=== PATIENT | male | born 1965 | race African-American/Black ===

== ENCOUNTER 2017-03-28 13:06 | Emergency (ER) | payer BC ==
[2017-03-28 14:10] LABS: BASOPHILS 0.4 %; BASOPHILS ABSOLUTE 0.02 10/3/uL (0.0-0.16); EOSINOPHILS 0.2 %; EOSINOPHILS ABSOLUTE 0.01 10/3/uL (0.0-0.53); HEMATOCRIT 39.1 % (40.0-51.0); HEMOGLOBIN 12.8 g/dL (13.6-17.8); IMMATURE GRANULOCYTES 0.2 %; IMMATURE GRANULOCYTES ABSOLUTE 0.01 10/3/uL (0.0-0.11); LYMPHOCYTES 18.7 %; LYMPHOCYTES ABSOLUTE 0.94 10/3/uL (0.67-4.30); MEAN CORPUS HGB CONC 32.7 g/dL (32.0-36.0); MEAN CORPUSCULAR HEMOGLOB 30.8 pg (26.0-34.0); MEAN CORPUSCULAR VOLUME 94.2 fL (80-100); MEAN PLATELET VOLUME 8.6 fL (9.2-13.0); MONOCYTES 12.7 %; MONOCYTES ABSOLUTE 0.64 10/3/uL (0.21-1.20); NEUTROPHILS 67.8 %; PLATELET COUNT 332 10/3/uL (150-400); RBC DISTRIBUTION WIDTH 14.1 % (12.0-16.0); RED CELL COUNT 4.15 10/6/uL (4.7-6.1)
[2017-03-28 14:12] LABS: ER CBC TAT 0 Hrs 07 Mins; MANUAL DIFF NO %
[2017-03-28 14:17] LABS: PARTIAL THROMBO TIME 27.9 SEC (22.5-37.2); PROTIME (NOT ORD) 13.1 SEC (12.0-14.5)
[2017-03-28 14:27] LABS: BUN (BLOOD UREA NITROGEN) 9 MG/DL (6-23); CHEST PAIN PROFILE TAT 0 Hrs 24 Mins; CHLORIDE, SERUM 106 MMOL/L (96-112); CO2 (CARBON DIOXIDE) 26 MMOL/L (24-34); CREATININE 0.88 MG/DL (0.70-1.30); GFR AFRICAN AMERICAN 117 ML/MIN (>=60); GFR NON AFRICAN AMERICAN 101 ML/MIN (>=60); GLUCOSE, SERUM 101 MG/DL (60-99); POTASSIUM, SERUM 4.1 MMOL/L (3.5-5.3); SODIUM, SERUM 138 MMOL/L (135-148); TROPONIN I <0.02 NG/ML (<0.05)
== END 2017-03-28 16:41 | disposition home or self-care (01) ==
LOC: ER 13:06
PROVIDERS: Emergency Medicine
DX: R07.89 Other chest pain (principal)
CPT/HCPCS: 71020; 80048; 83735; 84484; 85025; 85610; 85730; 93005; 99285

== ENCOUNTER 2017-04-11 11:22 | Observation (INO) | payer BC ==
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
--- NOTE | ~2017-04-11 | HP ---
History And Physical [facility] [address] [place]. [address] NAME: JOAQUIN DICKSON : 69 STATUS : ADM Bao PAT#: [id number] AGE: 51 ADM/REG DATE : 04/11/17 MR#: [id number] REPORT SERV DATE: 04/11/17 DICTATED BY: ALEJANDRA FLORIAN DATE: 04/11/17 REPORT STATUS : Draft TRANSCRIBED BY: MODRenée DATE: 04/11/17 DATE OF ADMISSION: 04/11/2017 CHIEF COMPLAINT: Chest pain reproducible by palpation, left arm numbness, and dizziness on and off for one month. HISTORY OF PRESENT ILLNESS: He is a 51-year-old gentleman. He does not have any past medical history, no prior hospitalization, no primary care provider. He does not take any medications, presenting today to [facility] with complaints that started about one month ago according to patient who is in intractable chest pain reproducible by palpation as well as left arm numbness and dizziness. The patient about two weeks ago, went to [facility] with these symptoms. He had a full workup which essentially has been negative and discharged home from the emergency room. However, due to the persistent and recurrence of the symptoms, today came to [facility]. He said that his chest pains are sharp and nonradiating. They are lasting about two to three hours and they are accompanied by left arm numbness as well as dizziness. He said he feels sometimes near syncopal, but he has never passed out. He did have some intermittent abdominal pain, but no nausea or vomiting. No diarrhea or constipation. No palpitations. No increased urinary frequency or urgency. He says that he is a smoker, but since symptoms occur, he cut in smoking significantly, although he has been smoking for 27 years. He is drinking about at least three to four beers per day for his entire life. He does not take IV drugs. He used to take marijuana. The patient has been evaluated in the emergency room, and after initial evaluation, Hospitalist Service has been asked for admission, further evaluation, and treatment. PAST MEDICAL HISTORY: None. PAST SURGICAL HISTORY: Left ankle surgery. PAST SOCIAL HISTORY: He is a smoker, currently half pack a day for at least 27 years. Alcohol about three to four beers a day. No IV drugs. ALLERGIES: HE DOES NOT HAVE ANY DRUG ALLERGIES. FAMILY HISTORY: Significant for arthritis and hypertension. MEDICATIONS: Also he does not take any home medications. PHYSICAL EXAMINATION: VITAL SIGNS: On arrival, the patient has been afebrile. Blood pressure 158/89, also heart rate 88, respiratory rate 16, and saturating 99% in room air. GENERAL: He is a very pleasant, well-developed, well-nourished gentleman, in no acute distress. He is alert and oriented x3. He is nonfocal. He follows all his commands appropriately. HEENT: Shows pupils equal, round, reactive to light. Extraocular movements intact. NECK: No JVD. No lymphadenopathy. No thyromegaly appreciated. CHEST: Eval shows bilateral air entry. Clear anteroposterior. No wheezes, crackles, or History And Physical [address] [address] NAME: JOAQUIN DICKSON : 69 STATUS : ADM Bao PAT#: [id number] AGE: 51 ADM/REG DATE : 04/11/17 MR#: [id number] REPORT SERV DATE: 04/11/17 DICTATED BY: ALEJANDRA FLORIAN DATE: 04/11/17 REPORT STATUS : Draft TRANSCRIBED BY: CHINMAY DATE: 04/11/17 rhonchi appreciated. CARDIOVASCULAR: He has regular rate and rhythm. S1, S2 positive. No S3, no S4. No murmurs, rubs, or gallops appreciated. ABDOMEN: Soft with positive bowel sounds. Nontender. No guarding. No rebound. EXTREMITIES: No clubbing, cyanosis, or edema. NEUROLOGIC: He is alert and oriented x3. He is nonfocal. He follows all his commands appropriately. LABORATORY DATA: Labs from today include sodium 142, potassium 4, chloride 107, CO2 of 25, BUN 8, creatinine is 0.83, glucose is 75. Total protein 7.9, albumin 3.9, direct bilirubin 0.1, indirect bilirubin 0.4, total bilirubin 0.5, alkaline phosphatase 59, ALT 65, AST 73. Lipase 269. Troponin I less than 0.02. White count is 4, hemoglobin 12.2, hematocrit 37.5, platelets 215. INR is 1. There is a chest x-ray, portable, performed in the emergency room. It does not show any acute cardiopulmonary abnormalities that could be appreciated. EKG has shown normal sinus rhythm, normal EKG. There is a CT of the brain without contrast performed in the emergency room shows negative noncontrast CT, opacification of the mastoid cells and partial opacification of the middle ears bilateral. Spine CT without contrast shows some degenerative joint disease, but no fracture or subluxation. ASSESSMENT: 1. This is a very pleasant 51-year-old gentleman with chest pain appears typical by presentation. 2. Left arm numbness and dizziness. 3. Tobacco abuse. 4. ETOH abuse. PLAN: 1. The patient is going to be admitted to Hospitalist Service for observation. Place him on oxygen, place him on aspirin, beta blockers low doses as tolerated. Rule out for LA by serial cardiac enzymes, serial EKG. Check a stress test in the morning as well. 2. Left arm numbness and intermittent dizziness. We are going to order an MRI of the brain and the C-spine in the morning. We will place him on oxygen, check a carotid ultrasound. Do a 2D echo. Rule him out for LA by serial cardiac enzymes, serial EKG. Check on hemoglobin A1c and fasting lipid profile. Check on vitamin B12, folic acid, check orthostatics twice a day. Hydrate and follow up the a.m. labs. 3. ETOH abuse. We are going to put him on Ativan p.r.n., multivitamin, as well as thiamine, and ETOH cessation education has been provided to the patient as well. 4. Tobacco abuse. Tobacco cessation education has been provided to the patient as well. We will provide reasonable pain, nausea control, as well as GI and DVT prophylaxis. That has been discussed extensively with the patient. All the questions have been History And Physical [address] [address] NAME: JOAQUIN DICKSON : 69 STATUS : ADM Bao PAT#: [id number] AGE: 51 ADM/REG DATE : 04/11/17 MR#: [id number] REPORT SERV DATE: 04/11/17 DICTATED BY: ALEJANDRA FLORIAN DATE: 04/11/17 REPORT STATUS : Draft TRANSCRIBED BY: MODL DATE: 04/11/17 answered in full. Further workup and recommendation pending above. It is worthwhile to note that the patient is going to be followed by Hospitalist Service. CF/CHINMAY Alejandra Florian M.D. / [id number] CC: Alejandra Florian M.D.
[2017-04-11 12:28] LABS: BASOPHILS 0.3 %; BASOPHILS ABSOLUTE 0.01 10/3/uL (0.0-0.16); EOSINOPHILS 1.3 %; EOSINOPHILS ABSOLUTE 0.05 10/3/uL (0.0-0.53); ER CBC TAT 0 Hrs 08 Mins; HEMATOCRIT 37.5 % (40.0-51.0); HEMOGLOBIN 12.2 g/dL (13.6-17.8); IMMATURE GRANULOCYTES 0.3 %; IMMATURE GRANULOCYTES ABSOLUTE 0.01 10/3/uL (0.0-0.11); LYMPHOCYTES 19.2 %; LYMPHOCYTES ABSOLUTE 0.76 10/3/uL (0.67-4.30); MANUAL DIFF NO %; MEAN CORPUS HGB CONC 32.5 g/dL (32.0-36.0); MEAN CORPUSCULAR HEMOGLOB 30.5 pg (26.0-34.0); MEAN CORPUSCULAR VOLUME 93.8 fL (80-100); MEAN PLATELET VOLUME 8.2 fL (9.2-13.0); MONOCYTES 14.6 %; MONOCYTES ABSOLUTE 0.58 10/3/uL (0.21-1.20); NEUTROPHILS 64.3 %; NEUTROPHILS ABSOLUTE 2.55 10/3/uL (2.02-8.40); PLATELET COUNT 215 10/3/uL (150-400)
[2017-04-11 12:35] LABS: PARTIAL THROMBO TIME 27.8 SEC (22.5-37.2); PROTIME (NOT ORD) 12.9 SEC (12.0-14.5)
[2017-04-11 12:45] LABS: ALBUMIN 3.9 G/DL (3.5-5.0); ALKALINE PHOSPHATASE 59 U/L (45-117); BUN (BLOOD UREA NITROGEN) 8 MG/DL (6-23); CALCIUM, SERUM 8.7 MG/DL (8.5-10.4); CHEST PAIN PROFILE TAT 0 Hrs 25 Mins; CHLORIDE, SERUM 107 MMOL/L (96-112); CO2 (CARBON DIOXIDE) 25 MMOL/L (24-34); CREATININE 0.83 MG/DL (0.70-1.30); DIRECT BILIRUBIN 0.1 MG/DL (0.0-0.4); GFR AFRICAN AMERICAN 120 ML/MIN (>=60); GFR NON AFRICAN AMERICAN 103 ML/MIN (>=60); INDIRECT BILIRUBIN(NOT ORDER) 0.4 MG/DL (0.1-0.9); SGOT(AST) 73 U/L (5-40); SGPT(ALT) 65 U/L (5-65); SODIUM, SERUM 142 MMOL/L (135-148); TOTAL BILIRUBIN 0.5 MG/DL (0-1.2); TOTAL PROTEIN 7.7 G/DL (6.0-8.5); TROPONIN I <0.02 NG/ML (<0.05)
[2017-04-11 12:47] LABS: GLUCOSE, SERUM 75 MG/DL (60-99)
[2017-04-11] MEDS ORDERED: *DENIES (15:44)
[2017-04-11 20:39] LABS: ALCOHOL 27 MG/DL (0); FREE T4 0.81 NG/DL (0.76-1.46); PHOSPHORUS, SERUM 3.4 MG/DL (2.5-4.5); SALICYLATE 2.4 MG/DL (-)
[2017-04-11 20:41] LABS: ACETAMINOPHEN LEVEL (TYLENOL) < 2.0 MCG/ML (10.0-20.0); FOLATE 17.2 NG/ML (>5.2)
[2017-04-11 21:25] LABS: CPK 278 U/L (0-200); TROPONIN I <0.02 NG/ML (<0.05)
[2017-04-11 21:26] LABS: CK-MB 1.5 NG/ML
[2017-04-11 23:39] LABS: ASCORBIC ACID (UR NOT ORDER) NEG (NEG); BILIRUBIN, URINE NEGATIVE (NEG); KETONE, URINE 20 MG/DL (NEG); LEUKOCYTE ESTERASE(NOT OR NEG (NEG); WBC (NOT ORDERED) (RFLEX) 1 (0-5)
[2017-04-12 00:01] LABS: AMPHETAMINES (NOT ORD) NEG (NEG); BARBITURATES (NOT ORDERED NEG (NEG); BENZODIAZEPINES (NOT ORD) NEG (NEG); CANNABINOIDS (THC) NEG (NEG); COCAINE (NOT ORDERED) NEG (NEG); OPIATES POS (NEG); PHENCYCLIDINE(PCP) NEG (NEG); TRICYCLICS NEG (NEG)
[2017-04-12 04:38] LABS: PARTIAL THROMBO TIME 28.4 SEC (22.5-37.2); PROTIME (NOT ORD) 12.7 SEC (12.0-14.5)
[2017-04-12 04:49] LABS: BUN (BLOOD UREA NITROGEN) 10 MG/DL (6-23); CALCIUM, SERUM 8.6 MG/DL (8.5-10.4); CHLORIDE, SERUM 105 MMOL/L (96-112); CHOL/HDL RATIO(NOT ORDER) 1.8 (0-5); CHOLESTEROL 215 MG/DL (< 200); CO2 (CARBON DIOXIDE) 28 MMOL/L (24-34); CPK 220 U/L (0-200); CREATININE 0.94 MG/DL (0.70-1.30); GFR AFRICAN AMERICAN 110 ML/MIN (>=60); GFR NON AFRICAN AMERICAN 95 ML/MIN (>=60); GLUCOSE, SERUM 89 MG/DL (60-99); HDL CHOLESTEROL 119 MG/DL (> 39); LDL CHOLESTEROL 82 MG/DL (< 130); NON-HDL CHOLESTEROL 96 MG/DL (< 160); POTASSIUM, SERUM 3.6 MMOL/L (3.5-5.3); SODIUM, SERUM 137 MMOL/L (135-148); TRIGLYCERIDE 73 MG/DL (< 150); TROPONIN I <0.02 NG/ML (<0.05)
[2017-04-12 04:50] LABS: CK-MB 1.3 NG/ML
[2017-04-12 08:31] LABS: GLYCOHEMOGLOBIN (HbA1c) 5.5 % (4.7-6.1)
[2017-04-12] MEDS ORDERED: NORV5 PO (13:47)
[2017-04-12] MEDS ORDERED: MULTIPLE VIT PO (13:47)
== END 2017-04-12 14:36 | disposition home or self-care (01) ==
LOC: ER 11:22 → CDU1 16:57
PROVIDERS: Emergency Medicine; Internal Medicine
DX: R07.89 Other chest pain (principal); R20.0 Anesthesia of skin; R42 Dizziness and giddiness; I10 Essential (primary) hypertension; F17.210 Nicotine dependence, cigarettes, uncomplicated; Z98.890 Other specified postprocedural states; Z79.82 Long term (current) use of aspirin; Z79.899 Other long term (current) drug therapy; Z82.61 Family history of arthritis; Z82.49 Family history of ischemic heart disease and other diseases of the circulatory system
CPT/HCPCS: 70450; 71010; 72125; 78452; 80048; 80061; 80076; 80305; 80307; 81001; 82140; 82550; 82553; 82607; 82746; 83036; 83605; 83615; 83690; 83735; 83880; 84100; 84439; 84443; 84484; 85025; 85610; 85730; 93005; 93017; 93306; 93880; 96374; 96376; 99285; A9270-GY; A9502; G0378

== ENCOUNTER 2017-04-27 12:32 | Emergency (ER) | payer BC ==
[~2017-04-27 12:32] MED LIST: *DENIES; MULTIPLE VIT PO; NORV5 PO
== END 2017-04-27 12:34 | disposition home or self-care (01) ==
LOC: ER 12:32
DX: R07.89 Other chest pain (principal); I11.0 Hypertensive heart disease with heart failure; I50.9 Heart failure, unspecified; F17.200 Nicotine dependence, unspecified, uncomplicated; Z79.899 Other long term (current) drug therapy
CPT/HCPCS: 71010; 93005; 99285